=== PATIENT | male | born 1985 | race Caucasian/White ===

== ENCOUNTER 2023-05-30 07:26 | Day surgery (SDC) | payer OTHER ==
[~2023-05-30] VITALS: Ht 177.8 cm; Wt 81.6 kg
[~2023-05-30 07:26] MED LIST: PREVACID15 M1 PO; PROAIR DIG108 MCG/AC; ZYRTEC10 MG PO
[2023-05-30 09:26] VITALS: BP 119/80
== END 2023-05-30 10:00 | disposition home or self-care (01) | DRG 951 ==
LOC: ENDO 07:26 → ORM 09:30 → ENDO 09:30 → ORM 09:45 → ENDO 10:00 → ORM 10:05
PROVIDERS: ATTEND Surgery
PROC: 0DBN8ZX Excision of Sigmoid Colon, Via Natural or Artificial Opening Endoscopic, Diagnostic (ICD-10-PCS; principal; 2023-05-30)
DX: Z12.11 Encounter for screening for malignant neoplasm of colon (principal); D12.5 Benign neoplasm of sigmoid colon; K64.8 Other hemorrhoids; Z86.010 Personal history of colon polyps; Z80.0 Family history of malignant neoplasm of digestive organs